=== PATIENT | male | born 1945 | race African-American/Black ===

== ENCOUNTER 2020-12-07 07:39 | Inpatient (IN) | payer MEDICARE ==
[2020-12-07] MEDS ORDERED: Acetaminophen 325 MG TAB PO PRN (08:04)
[2020-12-07] MEDS ORDERED: Acetaminophen 650 MG Suppository PR PRN (08:04)
--- NOTE | 2020-12-07 08:30 | PDOC.HHP ---
Hospitalist HPI - History of Present Illness History of Present Illness: ADMISSION DATE: 12/07/2020 TIME OF ASSESSMENT: 0730 CHIEF COMPLAINT: Left lower abdominal pain HPI: This is a 75-year-old gentleman who was brought into the emergency department early hours this morning due to left lower quadrant abdominal pain and rigors. Patient states that he first developed discomfort Tuesday evening along with uncontrollable shaking that eventually settled. He did well Tuesday throughout the day and then had recurrent pain in the evening. States that once again he developed recurring rigors. He has noted darkening and foul-smelling urine. Denies any dysuria or hematuria. Is not noted any fevers at home. States he has been tolerating oral intake without any nausea or vomiting. Denies having any headaches or dizziness. No recent cough or hemoptysis. No chest pain, palpitations, or shortness of breath. All other review of systems are negative. ED COURSE: The patient was initially seen at [facility] where he was noted to have a temperature of 102.1, he was tachycardic between 105 and 124. Blood pressure was fairly stable. He had an EKG done showing sinus tachycardia with a heart rate of 102 and unifocal PVCs noted. No ST changes or T wave abnormalities. Laboratory studies done showed a white cell count of 4.8, hemoglobin 17.1, hematocrit 57.5, platelets 112, neutrophils 82.1%. Sodium 141, potassium 4.1, BUN 17, creatinine 1.32, GFR 64, glucose 142, lactic acid 1.3, total bilirubin 1.5, AST 41, ALT 52, alk phos 134, troponin negative, lipase 32. Urinalysis done showed 100 protein, greater than 1000 glucose, large blood, positive for nitrites, small leukocyte esterase, 21-50 red blood cells, greater than 50 white blood cells, 4-6 squamous epithelial cells and 3+ bacteria. Chest x-ray was done showing no acute intrathoracic abnormalities. Abdominal aortic ultrasound showed no evidence of abdominal aortic aneurysm. CT of the abdomen and pelvis also done with radiology report pending at this time. Per outside ED notes the patient was noted to have changes consistent with diverticulitis. He was started on IV antibiotics with Rocephin, vancomycin, and metronidazole. He received IV fluids and for his fever he was given 600 mg of ibuprofen and 650 mg of acetaminophen. PAST MEDICAL HISTORY: 1. CAD 2. Diabetes mellitus, type II 3. Hypothyroidism 4. Hyperlipidemia 5. Hypertension 6. BPH PAST SURGICAL HISTORY: 1. CABG x3 2. Back surgery SOCIAL HISTORY: The patient is fully independent at baseline. Denies any history of tobacco use. Reports occasional alcohol consumption. Denies any dr ug use. FAMILY HISTORY: Noncontributory ALLERGIES: Inderal CURRENT MEDICATIONS: 1. Atorvastatin 40 mg p.o. 2 tablets once a day 2. Clopidogrel 75 mg p.o. daily 3. Levothyroxine 112 mcg p.o. daily 4. Losartan 25 mg p.o. daily 5. Metoprolol tartrate 25 mg p.o. twice daily 6. Glyxambi 25/5 mg 1 tablet p.o. daily 7. Aspirin 81 mg p.o. daily 8. Combivent 9. Fluticasone nasal spray 10. Tamsulosin 0.4 mg p.o. daily 11. Vitamin D3 5000 units p.o. daily 12. Testosterone monthly injection 13. Aleve 220 mg 2 tablets p.o. twice daily - Exam General Appearance: NAD, awake alert General - other findings: VS: Temp 99.1, HR 120, RR 20, O2 sat 96% on room air, BP 138/87. Eye: PERRL, anicteric sclera ENT: normocephalic atraumatic, no oropharyngeal lesions Neck: supple, no lymphadenopathy Heart: RRR, no murmur, no gallops, no rubs Respiratory: CTAB, no wheezes, no rales, no ronchi, normal chest expansion Gastrointestinal: soft, non-tender, non-distended, normal bowel sounds Extremities: no edema Skin: normal turgor, no lesions, no rashes Neurological: cranial nerve grossly intact, normal sensation to touch, no weakness Musculoskeletal: normal tone, normal strength, no muscle wasting Psychiatric: normal affect, normal behavior, A&O x 3 Hospitalist H&P A/P - Problem (1) Sepsis Code(s): A41.9 - SEPSIS, UNSPECIFIED ORGANISM Status: Acute (2) Fever and chills Code(s): R50.9 - FEVER, UNSPECIFIED Status: Acute (3) Left lower quadrant abdominal pain Code(s): R10.32 - LEFT LOWER QUADRANT PAIN Status: Acute (4) Diverticulitis Code(s): K57.92 - DVTRCLI OF INTEST, PART UNSP, W/O PERF OR ABSCESS W/O BLEED Status: Suspected (5) UTI (urinary tract infection) Status: Acute (6) LANNY (acute kidney injury) Code(s): N17.9 - ACUTE KIDNEY FAILURE, UNSPECIFIED Status: Acute (7) Hypertension Code(s): I10 - ESSENTIAL (PRIMARY) HYPERTENSION Status: Chronic (8) Diabetes mellitus type 2 in obese Code(s): E11.69 - TYPE 2 DIABETES MELLITUS WITH OTHER SPECIFIED COMPLICATION; E66.9 - OBESITY, UNSPECIFIED Status: Chronic (9) Hypothyroidism Code(s): E03.9 - HYPOTHYROIDISM, UNSPECIFIED Status: Chronic (10) BPH (benign prostatic hyperplasia) Code(s): N40.0 - BENIGN PROSTATIC HYPERPLASIA WITHOUT LOWER URINRY TRACT SYMP Status: Chronic (11) CAD (coronary artery disease) Code(s): I25.10 - ATHSCL HEART DISEASE OF [place] CORONARY ARTERY W/O ANG PCTRS Status: Chronic (12) History of coronary artery bypass graft x 3 Code(s): Z95.1 - PRESENCE OF AORTOCORONARY BYPASS GRAFT Status: Chronic - Plan Plan: Sepsis secondary to UTI +/- Diverticulitis Started on IV antibiotics, continue CT radiology report pending UCx pending Repeat LFTs with morning labs LANNY Continue IV fluids Monitor renal function Type 2 DM Accu-checks ACHS Insulin Sliding scale initiated Hypertension Monitor BP Resume home meds as appropriate once verified Hypothyroidism Check TSH and Free T4 Resume levothyroxine Hyperlipidemia Chronic and stable Resume statin BPH Stable, resume tamsulosin GI Prophylaxis Famotidine DVT Prophylaxis Mechanical SCDs CODE STATUS FULL
[2020-12-07] MEDS ORDERED: Dextrose 50% Abboject 50 ML SYRINGE SLOW IVP PRN (08:44)
[2020-12-07] MEDS ORDERED: Dextrose 5% in Water 1,000 ML IV PRN (08:44)
[2020-12-07] MEDS ORDERED: HumaLOG 300 UNITS/3 ML VIAL SC PRN ×2 (08:44)
[2020-12-07] MEDS: Famotidine 20 MG TAB PO SCH ×2 (11:17→20:55)
[2020-12-07] MEDS: Sodium Chloride 0.9% 1,000 ML IV SCH ×2 (11:17→20:58)
[2020-12-07] MEDS ORDERED: FLU VACC QS2020-21(65YR UP)/PF 240 MCG/0.7 ML SYRINGE IM ONE (12:00)
[2020-12-07 16:06] VITALS: BMI 27.5
[2020-12-07 21:27] LABS: SARS-CoV-2 MS2 Positive; SARS-CoV-2 N Gene Negative; SARS-CoV-2 S Gene Negative; SARS-CoV-2 by NAA Not Detected (NotDetected); SARS-CoV-2 orf1ab Negative
[2020-12-08] MEDS: cefTRIAXone\\ROCEPHIN 2 GM in Sodium Chloride 0.9% 100 ML IVPB SCH (04:52)
[2020-12-08 06:33] LABS: #Lymphocytes 1.2 thou/uL (1.20-3.40); #Monocytes 1.3 thou/uL (0.11-0.59); #Neutrophils 6.5 thou/uL (1.40-6.50); %Basophils 0.5 % (0.0-1.0); %Eosinophils 0.4 % (0.0-10.0); %Monocytes 13.9 % (0.0-10.0); %Neutrophils 72.2 % (42.0-75.0); Hemoglobin 15.7 g/dL (14.0-18.0); Mean Corpuscular HGB CONC 31.7 g/dL (32.0-36.0); Mean Corpuscular Hemoglobin 27.4 pg (27.0-31.0); Mean Corpuscular Volume 86.5 fL (78.0-98.0); Mean Platelet Volume 10.1 fL (7.4-10.4); Platelet Count 109 thou/uL (130-400); RBC Distribution Width 15.9 % (11.5-14.5); Red Blood Cell (RBC) Count 5.74 mill/uL (4.70-6.10)
[2020-12-08 06:53] LABS: Lactic Acid 1.6 mmol/L (0.5-2.2)
[2020-12-08 06:57] LABS: ALT (SGPT) 34 U/L (8-55); AST (SGOT) 32 U/L (5-34); Albumin 3.6 g/dL (3.4-4.8); Alkaline Phosphatase 109 U/L (40-110); Anion Gap 16 mmol/L (10-20); BUN (Urea Nitrogen) 14 mg/dL (8.4-25.7); Bilirubin, Total 0.7 mg/dL (0.2-1.2); Calc. Creatinine Clearance 90 mL/min (70-130); Calcium 8.9 mg/dL (7.8-10.44); Carbon Dioxide 20 mmol/L (23-31); Chloride 109 mmol/L (98-107); Globulin 3.3 g/dL (2.4-3.5); Glucose 98 mg/dL (83-110); Lipase 24 U/L (8-78); Potassium 3.8 mmol/L (3.5-5.1); Protein, Total 6.9 g/dL (5.8-8.1); Sodium 141 mmol/L (136-145)
--- NOTE | 2020-12-08 08:28 | PDOC.HOSPP ---
- Subjective Encounter Date: 12/08/20 Encounter Time: 11:30 Subjective: Pain in abdomen almost resolve. Some loose bowel movement this AM. No fever. Tolerating food well. - Objective Vital Signs & Weight: Vital Signs (12 hours) Temp Pulse Resp BP Pulse Ox 12/08/20 04:46 98.7 F 88 20 167/91 H 90 L 12/08/20 00:47 99 F 92 18 157/98 H 100 12/07/20 21:52 99.3 F 89 18 167/83 H 98 Weight Weight 203 lb Result Diagrams: 12/08/20 06:16 12/08/20 06:16 Additional Labs: Accuchecks 12/08/20 12/07/20 12/07/20 04:32 20:06 16:44 POC Glucose 113 H 105 H 112 H 12/07/20 11:40 POC Glucose 143 H Hospitalist ROS - Review of Systems Constitutional: denies: fever, chills Respiratory: denies: cough, shortness of breath Cardiovascular: denies: chest pain, palpitations Gastrointestinal: reports: abdominal pain, diarrhea. denies: nausea, vomiting - Medication Medications: Active Medications Generic Name Dose Route Start Last Admin Trade Name Freq PRN Reason Stop Dose Admin Famotidine 20 mg 12/07/20 09:00 12/07/20 20:55 Famotidine 20 Mg Tab PO 20 mg BID LEWIS Administration Sodium Chloride 1,000 mls @ 75 mls/hr 12/07/20 08:15 12/07/20 20:58 Normal Saline 0.9% IV 1,000 mls .[id number] LEWIS Administration Ceftriaxone Sodium 2 gm/ 100 mls @ 200 mls/hr 12/08/20 04:00 12/08/20 04:52 Sodium Chloride IVPB 100 mls 0400 LEWIS Administration - Exam General Appearance: NAD, awake alert ENT: moist mucosa Heart: RRR, no murmur, no gallops, no rubs Respiratory: CTAB, no wheezes, no rales, no ronchi Gastrointestinal: soft, non-distended, normal bowel sounds, no palpable masses, no guarding, no rigidity Gastrointestinal - other findings: minimal TTP deep in LLQ Psychiatric: normal affect, normal behavior, A&O x 3 Hosp A/P - Plan Sepsis secondary to UTI and Diverticulitis Started on IV antibiotics- Rocephin and Metronidazole Mild diverticulitis and enteritis on CT abdomen Gram negative rods in both blood and urine cultures, identification pending Repeat LFTs with morning labs Patient markedly improved. Likely transition to oral antibiotics tomorrow and d/c home. Gram negative Bacteremia LANNY Continue IV fluids renal function normalized Type 2 DM Accu-checks ACHS Insulin Sliding scale initiated Hypertension Monitor BP Resume home meds as appropriate once verified Hypothyroidism TSH mildly suppressed, could be due to illness check free T3 and T4 Resume levothyroxine Hyperlipidemia Chronic and stable Resume statin BPH Stable, resume tamsulosin GI Prophylaxis Famotidine DVT Prophylaxis Mechanical SCDs Thrombocytopenia No heparin or lovenox CODE STATUS FULL
[2020-12-08] MEDS ORDERED: Non-Formulary Item 1 EACH (Fluticasone Furoate [Arnuity Ellipta] 50 MCG Blst.W.Dev) INH PRN (08:34)
[2020-12-08] MEDS ORDERED: Cholecalciferol 1,000 UNITS (25 MCG) TAB PO SCH (10:15)
[2020-12-08] MEDS ORDERED: Alogliptin 25 MG TAB PO SCH (10:15)
[2020-12-08] MEDS ORDERED: Empagliflozin 25 MG TAB PO SCH (10:15)
[2020-12-08] MEDS: Aspirin 81 mg Enteric Coated Tablet PO SCH (10:37)
[2020-12-08] MEDS: Losartan 25 MG TAB PO SCH (10:38)
[2020-12-08] MEDS: Metoprolol Tartrate 25 MG TAB PO SCH ×2 (10:38→21:11)
[2020-12-08] MEDS: metroNIDAZOLE 500 MG in Premix Bag 1 BAG IVPB SCH ×2 (10:38→17:51)
[2020-12-08] MEDS: Clopidogrel Bisulfate 75 MG TAB PO SCH (10:38)
[2020-12-08] MEDS: Famotidine 20 MG TAB PO SCH ×2 (10:38→21:11)
[2020-12-08] MEDS: Tamsulosin HCl 0.4 MG CAP PO SCH (10:38)
[2020-12-08] MEDS ORDERED: Naproxen 500 MG TAB PO SCH (12:00)
[2020-12-08] MEDS: Sodium Chloride 0.9% 1,000 ML IV SCH (14:16)
[2020-12-08] MEDS ORDERED: Atorvastatin Calcium 40 MG TAB PO SCH (21:00)
[2020-12-09] MEDS: metroNIDAZOLE 500 MG in Premix Bag 1 BAG IVPB SCH (02:45)
[2020-12-09] MEDS: cefTRIAXone\\ROCEPHIN 2 GM in Sodium Chloride 0.9% 100 ML IVPB SCH (04:50)
[2020-12-09] MEDS: Sodium Chloride 0.9% 1,000 ML IV SCH (04:52)
[2020-12-09] MEDS ORDERED: Levothyroxine Sodium 112 MCG TAB PO SCH (06:00)
[2020-12-09 07:24] LABS: Free T4 (Free Thyroxine) 0.79 ng/dL (0.70-1.48)
--- NOTE | 2020-12-09 07:28 | PDOC.HOSPP ---
- Subjective Encounter Date: 12/09/20 Encounter Time: 10:30 Subjective: Patient without further abdominal pain. No fever. No diarrhea. Eating well. Eager to go home. - Objective Vital Signs & Weight: Vital Signs (12 hours) Temp Pulse Resp BP Pulse Ox 12/09/20 06:53 80 18 94 L 12/08/20 20:00 98.5 F 95 18 158/84 H 100 Weight Weight 203 lb Result Diagrams: 12/08/20 06:16 12/08/20 06:16 Additional Labs: Accuchecks 12/09/20 12/08/20 12/08/20 04:53 20:04 16:34 POC Glucose 92 184 H 118 H Hospitalist ROS - Review of Systems Constitutional: denies: fever, chills Respiratory: denies: cough, shortness of breath Cardiovascular: denies: chest pain, palpitations Gastrointestinal: denies: nausea, vomiting, abdominal pain Genitourinary: denies: dysuria, hematuria - Medication Medications: Active Medications Generic Name Dose Route Start Last Admin Trade Name Freq PRN Reason Stop Dose Admin Albuterol/Ipratropium 3 ml 12/08/20 18:30 12/09/20 06:53 Ipratropium/Albuterol Sulfate 3 Ml Neb NEB 3 ml TID-RT LEWIS Administration Aspirin 81 mg 12/08/20 09:00 12/08/20 10:37 Aspirin 81 Mg Enteric Coated Tablet PO 81 mg DAILY LEWIS Administration Atorvastatin Calcium 80 mg 12/08/20 21:00 12/08/20 21:10 Atorvastatin Calcium 40 Mg Tab PO 80 mg HS LEWIS Administration Clopidogrel Bisulfate 75 mg 12/08/20 09:00 12/08/20 10:38 Clopidogrel Bisulfate 75 Mg Tab PO 75 mg DAILY LEWIS Administration Famotidine 20 mg 12/07/20 09:00 12/08/20 21:11 Famotidine 20 Mg Tab PO 20 mg BID LEWIS Administration Sodium Chloride 1,000 mls @ 75 mls/hr 12/07/20 08:15 12/09/20 04:52 Normal Saline 0.9% IV 1,000 mls .[id number] LEWIS Administration Ceftriaxone Sodium 2 gm/ 100 mls @ 200 mls/hr 12/08/20 04:00 12/09/20 04:50 Sodium Chloride IVPB 100 mls 0400 LEWIS Administration Metronidazole 500 mg/ Device 100 mls @ 100 mls/hr 12/08/20 10:00 12/09/20 02:45 IVPB 100 mls 0200,1000,1800 LEWIS Administration Levothyroxine Sodium 112 mcg 12/09/20 06:00 12/09/20 04:51 Levothyroxine Sodium 112 Mcg Tab PO 112 mcg 0600 LEWIS Administration Losartan Potassium 25 mg 12/08/20 09:00 12/08/20 10:38 Losartan 25 Mg Tab PO 25 mg DAILY LEWIS Administration Metoprolol Tartrate 25 mg 12/08/20 09:00 12/08/20 21:11 Metoprolol Tartrate 25 Mg Tab PO 25 mg BID LEWIS Administration Tamsulosin HCl 0.4 mg 12/08/20 09:00 12/08/20 10:38 Tamsulosin Hcl 0.4 Mg Cap PO 0.4 mg DAILY LEWIS Administration Testosterone Cypionate 200 mg 12/08/20 08:45 12/08/20 10:50 Testosterone Cypionate 200 Mg/Ml Vial IM Not Given Q28D [facility] - Exam General Appearance: NAD, awake alert ENT: moist mucosa Heart: RRR, no murmur, no gallops, no rubs Respiratory: CTAB, no wheezes, no rales, no ronchi Gastrointestinal: soft, non-tender, normal bowel sounds Gastrointestinal - other findings: very protuberant but normal per patient Extremities: no edema Psychiatric: normal affect, normal behavior, A&O x 3 Hosp A/P - Plan Sepsis secondary to UTI and Diverticulitis Started on IV antibiotics- Rocephin and Metronidazole Mild diverticulitis and enteritis on CT abdomen E. coli growing in blood and urine cultures, sensitive to Levaquin. Repeat LFTs normalized Patient markedly improved. Home on oral antibiotics today- Levaquin and Metronidazole. Gram negative Bacteremia LANNY On IV fluids renal function normalized Type 2 DM Accu-checks ACHS Insulin Sliding scale initiated Hypertension Monitor BP Resume home meds as appropriate once verified Hypothyroidism TSH mildly suppressed, could be due to illness free T3 and T4 not elevated, no need to change levothyroxine dose at this time Resume levothyroxine Hyperlipidemia Chronic and stable Resume statin BPH Stable, resume tamsulosin GI Prophylaxis Famotidine DVT Prophylaxis Mechanical SCDs Thrombocytopenia No heparin or lovenox CODE STATUS FULL
[2020-12-09 07:41] VITALS: BP 174/84; TEMP 98.4
[2020-12-09] MEDS ORDERED: Naproxen 500 MG TAB PO SCH (09:00)
[2020-12-09] MEDS ORDERED: metroNIDAZOLE 500 MG TAB PO SCH (09:00)
[2020-12-09] MEDS ORDERED: Alogliptin 25 MG TAB PO SCH (09:00)
[2020-12-09] MEDS ORDERED: Fluticasone Propionate Nasal Spray 16 gm Bottle NASAL SCH (09:00)
[2020-12-09] MEDS ORDERED: Cholecalciferol 1,000 UNITS (25 MCG) TAB PO SCH (09:00)
[2020-12-09] MEDS ORDERED: Empagliflozin 25 MG TAB PO SCH (09:00)
[2020-12-09] MEDS: Tamsulosin HCl 0.4 MG CAP PO SCH (09:16)
[2020-12-09] MEDS: Metoprolol Tartrate 25 MG TAB PO SCH (09:16)
[2020-12-09] MEDS: Famotidine 20 MG TAB PO SCH (09:16)
[2020-12-09] MEDS: Losartan 25 MG TAB PO SCH (09:16)
[2020-12-09] MEDS: Aspirin 81 mg Enteric Coated Tablet PO SCH (09:16)
[2020-12-09] MEDS: Clopidogrel Bisulfate 75 MG TAB PO SCH (09:16)
--- NOTE | 2020-12-09 14:53 | DIS ---
DATE OF ADMISSION: 12/07/2020 DATE OF DISCHARGE: 12/09/2020 PRIMARY CARE PHYSICIAN: Carmen Pham MD REASON FOR ADMISSION: Sepsis and abdominal pain. DISCHARGE DIAGNOSES: 1. Sepsis resolved. 2. Escherichia coli urinary tract infection with bacteremia. 3. Diverticulitis, mild. 4. Acute kidney injury resolved. 5. Diabetes mellitus, type 2. 6. Hypertension. 7. Hypothyroidism. 8. Hyperlipidemia. 9. Benign prostatic hyperplasia. 10. Mild thrombocytopenia. PROCEDURES: CT of the abdomen and pelvis with contrast in the outside emergency room showing multiple slightly dilated fluid and gas-filled loops of small bowel in the mid and lower abdomen consistent with enteritis and mild diverticulitis of the distal descending colon without complication. CONSULTATIONS: None. SUMMARY OF HOSPITAL COURSE: This is a 75-year-old male with history of coronary artery disease, diabetes, hypertension, hyperlipidemia, and benign prostatic hyperplasia. He started having severe left lower quadrant abdominal pain and rigors. He also noticed darkening and foul smelling of his urine. The patient was seen in the [facility] Emergency Room. He was found to be septic with a temperature of 102 [address] tachycardia. He had CT of the abdomen as done above, was found to have evidence of urinary tract infection. Blood and urine cultures were obtained. He was given IV fluids and IV antibiotics and transferred to our hospital. His CT of the abdomen was consistent with some mild diverticulitis. However, his abdominal pain resolved very quickly. The patient did grow back E coli in his urine and both blood cultures. This was sensitive to the ceftriaxone. He was on along with being sensitive to Levaquin. The patient had complete resolution of his pain. He had no more fevers. He had resolution of his acute kidney injury and normalization of all his vital signs. He was eating well and stable for discharge today. He is being discharged on Levaquin along with metronidazole in combination for the diverticulitis as well as covering the UTI. DISCHARGE MANAGEMENT: Discharged home. ACTIVITY: As tolerated. DIET: Diabetic diet. FOLLOWUP: With Dr. Pham in 7 days. DISCHARGE MEDICATIONS: 1. Metronidazole 500 mg 3 times a day for another 5 days, 15 tablets dispensed. 2. Levofloxacin 750 mg daily for another 5 days, 5 tablets dispensed. 3. Aspirin 81 mg daily. 4. Atorvastatin 80 mg daily. 5. Vitamin D3 of 5000 units daily. 6. Clopidogrel 75 mg daily. 7. Empagliflozin/linagliptin 25/5 mg one tablet daily. 8. Flonase nasal spray daily. 9. Combivent Respimat two puffs inhaled three times a day. 10. Levothyroxine 112 mcg daily. 11. Losartan 25 mg daily. 12. Metoprolol tartrate 25 mg twice a day. 13. Naproxen as needed. 14. Tamsulosin 0.4 mg daily. 15. Testosterone intramuscular monthly as previously. TIME SPENT: Arranging the details of this discharge took 35 minutes. Job ID: [id number]
== END 2020-12-09 11:21 | disposition home or self-care (01) | DRG 872 ==
LOC: INTOOBSV 07:39 → T4-A 07:39 → OBSVTOIN 08:54
PROVIDERS: ADMIT Internal Medicine; ATTEND Emergency Medicine
DX: A41.51 Sepsis due to Escherichia coli [E. coli] (principal); N39.0 Urinary tract infection, site not specified; K57.32 Diverticulitis of large intestine without perforation or abscess without bleeding; N17.9 Acute kidney failure, unspecified; Z20.822 Contact with and (suspected) exposure to COVID-19; E11.9 Type 2 diabetes mellitus without complications; I10 Essential (primary) hypertension; E03.9 Hypothyroidism, unspecified; N40.0 Benign prostatic hyperplasia without lower urinary tract symptoms; D69.6 Thrombocytopenia, unspecified; Z28.21 Immunization not carried out because of patient refusal; Z79.899 Other long term (current) drug therapy
CPT/HCPCS: 36415; 36416; 80053; 83605; 83690; 83735; 83880; 84439; 84443; 84481; 85025; 87635; 94640; G0378; J0696; J3490; J7620; U0003